=== PATIENT | male | born 1990 | race Caucasian/White ===

== ENCOUNTER 2016-09-27 16:21 | Emergency (ER) | payer BC ==
[~2016-09-27] VITALS: Ht 188 cm; Wt 99.8 kg
[2016-09-27] MEDS ORDERED: HYDROmorphone 2 MG/ML VIAL ONE (16:27)
[2016-09-27] MEDS ORDERED: MIDAZOLAM HCL/PF 2 MG/2 ML VIAL. IV ONE ×2 (16:30→17:15)
[2016-09-27] MEDS ORDERED: HYDROmorphone 2 MG/ML VIAL IV ONE ×2 (16:30→17:15)
[2016-09-27] MEDS ORDERED: MIDAZOLAM HCL/PF 2 MG/2 ML VIAL. ONE (16:34)
--- NOTE | 2016-09-27 17:25 | PHYS DOC ---
Past Medical History Past Medical History: No Pertinent History Past Surgical History: Other Additional Past Surgical Histo: BACK X2 Additional Information: 0.5 PPD Alcohol Use: Occasionally Drug Use: None Adult General Chief Complaint Chief Complaint: SHOULDER INJURY HPI HPI 26-year-old male with no significant past medical history and no prior shoulder dislocation now presents the emergency department feeling as if he dislocated his right shoulder. Patient was using a slip and slide when he fell on his arm got extended backwards. He felt a pop and has been unable to range of motion the arm since. No head injury or neck pain. No other complaints. Patient is not intoxicated and has not been using drugs Review of Systems Review of Systems Constitutional: Denies fever or chills [] Eyes: Denies change in visual acuity, redness, or eye pain [] HENT: Denies nasal congestion or sore throat [] Respiratory: Denies cough or shortness of breath [] Cardiovascular: No additional information not addressed in HPI [] GI: Denies abdominal pain, nausea, vomiting, bloody stools or diarrhea [] : Denies dysuria or hematuria [] Musculoskeletal: Denies back pain or joint pain [] Integument: Denies rash or skin lesions [] Neurologic: Denies headache, focal weakness or sensory changes [] Endocrine: Denies polyuria or polydipsia [] Current Medications Current Medications Current Medications Medications (Trade) Dose Ordered Sig/Lorna Start Time Stop Time Status Last Admin Dose Admin Hydromorphone HCl (Dilaudid) 1 mg 1X ONCE 09/27/16 17:15 09/27/16 17:19 DC 09/27/16 17:18 1 MG Midazolam HCl (Versed) 2 mg 1X ONCE 09/27/16 17:15 09/27/16 17:19 DC 09/27/16 17:18 2 MG Allergies Allergies Allergies Coded Allergies Type Severity Reaction Last Updated Verified divalproex sodium Allergy Mild spontaneous bruising 09/27/16 Yes Physical Exam Physical Exam Alert well-appearing mild distress complaining of right shoulder pain but patient ,commutative and appropriate no clinical intoxication. Normocephalic/ atraumatic. Normal painless range of motion of the C-spine with no midline tenderness. Nonfocal neurologic exam. Right shoulder with empty glenoid fossa with anterior fullness subclavicular. Neurovascularly intact P extremity with no deltoid anesthesia and good distal pulses and cap refill Remainder of exam is benign. Constitutional: Well developed, well nourished, no acute distress, non-toxic appearance. [] HENT: Normocephalic, atraumatic, bilateral external ears normal, oropharynx moist, no oral exudates, nose normal. [] Eyes: PERRLA, EOMI, conjunctiva normal, no discharge. [] Neck: Normal range of motion, no tenderness, supple, no stridor. [] Cardiovascular:Heart rate regular rhythm, no murmur [] Lungs & Thorax: Bilateral breath sounds clear to auscultation [] Abdomen: Bowel sounds normal, soft, no tenderness, no masses, no pulsatile masses. [] Skin: Warm, dry, no erythema, no rash. [] Back: No tenderness, no CVA tenderness. [] Extremities: No tenderness, no cyanosis, no clubbing, ROM intact, no edema. [] Neurologic: Alert and oriented X 3, normal motor function, normal sensory function, no focal deficits noted. [] Psychologic: Affect normal, judgement normal, mood normal. [] Current Patient Data Vital Signs Vital Signs Date Time Temp Pulse Resp B/P (MAP) Pulse Ox O2 Delivery O2 Flow Rate FiO2 09/27/16 17:18 Room Air 09/27/16 16:22 97.5 57 24 167/80 (109) 100 97.5 EKG EKG [] Radiology/Procedures Radiology/Procedures X-ray right shoulder with normal anatomical position of humeral head and glenoid fossa. No bony abnormality. Interpreted by me. [] Course & Med Decision Making Course & Med Decision Making Pertinent Labs and Imaging studies reviewed. (See chart for details) Signs and symptoms consistent with anterior dislocation right shoulder no prior history of dislocation for this patient. Analgesia and anxiolysis administered with Dilaudid and Versed. Patient is alert and conversant during procedure. Reduction of right shoulder dislocation performed by me- see procedure note. She tolerated well without complication. Neurovascularly intact right upper extremity after procedure. Hoahaoism of anatomical position confirmed by x- ray. Shoulder immobilizer given. Patient aware to where she'll shoulder mobilizer and when removing it to bathe to keep his arm against his body to avoid repeat dislocation. Patient will follow up with orthopedics and take NSAIDs and Tylenol as needed for pain. No further workup or treatment indicated patient agrees with outpatient follow-up and strict return precautions given Procedure was reduction of right shoulder anterior dislocation by ER Elsi And Versed given for analgesia and anxiety lysis. With good effect. Patient sitting on the edge of the bed alert and conversant during procedure. Elbow Sima spotting and right upper extremity externally rotated by me. At 46 patient with positive clunk and sikh of anatomical profile of glenoid fossa and right shoulder. Neurovascularly intact status post procedure and patient tolerated well without complication Dragon Disclaimer Dragon Disclaimer This electronic medical record was generated, in whole or in part, using a voice recognition dictation system. Departure Departure Impression: Primary Impression: Dislocation of right shoulder joint Disposition: HOME, SELF-CARE Condition: IMPROVED Referrals: JOHANNA SUTTON II, MD Patient Instructions: Shoulder Dislocation Additional Instructions: Your shoulder dislocation has been reduced by the ER doctor. This was an anterior dislocation. Wear shoulder immobilizer until follow-up with orthopedics and otherwise directed. Take ibuprofen 800 mg every 6 hours as needed for pain. He can also take Tylenol if necessary. Apply ice for the first 2 days. When he removed the sling and shoulder immobilizer to bathe keep her arm against her body in the same position.. Failure to do this could result in redislocation and the need for further emergency medical treatment. Follow-up with Dr. Sutton the orthopedic surgeon. Call for an appointment. It's okay to use the hand for light activity, however keep it in position against her body with a shoulder immobilizer. CHELSEA JACQUES MD Sep 27, 2016 17:25
[2016-09-27 17:51] VITALS: BP 147/73
--- NOTE | 2016-09-28 09:09 | RAD ---
Examination: 2 views of the right shoulder History: History of postreduction Comparison: None available Findings: The humerus head appears to be within the glenoid. There is no obvious acute fracture identified. Impression: No acute osseous findings.
== END 2016-09-27 18:10 | disposition home or self-care (01) ==
LOC: ER 16:21
DX: S43.004A Unspecified dislocation of right shoulder joint, initial encounter (principal); F17.200 Nicotine dependence, unspecified, uncomplicated; Z88.8 Allergy status to other drugs, medicaments and biological substances; W19.XXXA Unspecified fall, initial encounter; Y93.89 Activity, other specified; Y92.89 Other specified places as the place of occurrence of the external cause; Y99.8 Other external cause status
CPT/HCPCS: 23650; 36415; 73030; 96374; 96375; 96376; 99284; J1170; J2250